=== PATIENT | male | born 1965 | race Caucasian/White ===

== ENCOUNTER → 2018-03-01 | Outpatient (CLI) | payer OTHER ==
[2016-03-11 07:55] VITALS: BP 152/93
--- NOTE | 2018-03-01 10:16 | RAD ---
History: Lump of the posterior distal thigh at site of lipoma removal 2 weeks ago. Comparison: None. Findings: Ultrasound imaging was performed of the distal right thigh in area of interest. In area of interest, there is a complex hypoechoic fluid collection which measures 4.7 x 3.5 x 1.1 cm and is compatible with hematoma. Impression: Surgical site demonstrates complex hypoechoic fluid collection measuring 4.7 cm in maximum dimension, compatible with postoperative hematoma. Electronically signed by: Bsail Smith MD (03/01/2018 10:12 AM) [facility]
== END | disposition home or self-care (01) ==
LOC: US 07:36
PROVIDERS: ATTEND Family Medicine Sports Medicine
DX: R22.42 Localized swelling, mass and lump, left lower limb (principal); I10 Essential (primary) hypertension; E11.9 Type 2 diabetes mellitus without complications
CPT/HCPCS: 76881

== ENCOUNTER → 2018-09-23 | Outpatient (CLI) | payer OTHER ==
[2016-03-11 07:55] VITALS: BP 152/93
[~2018-09-23] MED LIST: BUPIVACAINE MPF 0.25% 30 ML VIAL. ONE; methylPREDNISolone ACETATE 40 MG/ML VIAL. ONE
== END | disposition home or self-care (01) ==
LOC: SURG 10:27
PROVIDERS: ATTEND Anesthesiology Pain Medicine
DX: M79.18 Myalgia, other site (principal); M47.22 Other spondylosis with radiculopathy, cervical region; I10 Essential (primary) hypertension; E11.9 Type 2 diabetes mellitus without complications; Z79.899 Other long term (current) drug therapy; G47.30 Sleep apnea, unspecified; Z72.89 Other problems related to lifestyle; Z79.84 Long term (current) use of oral hypoglycemic drugs; M19.90 Unspecified osteoarthritis, unspecified site; Z98.890 Other specified postprocedural states
CPT/HCPCS: 20553; J1030; J3490